=== PATIENT | male | born 1960 | race African-American/Black ===

== ENCOUNTER 2023-05-20 20:48 | Emergency (ER) | payer MEDICAID ==
[~2023-05-20] VITALS: Ht 167.6 cm; Wt 73.0 kg
[2023-05-20 21:01] VITALS: BP 116/77; O2SAT 99
[2023-05-20] MEDS ORDERED: ACETAMINOPHEN 325MG TABLET PO ONE (23:30)
[2023-05-21] MEDS ORDERED: METH-653 MT (01:45)
[2023-05-21 02:24] VITALS: PULSE 82; RESP 18
== END 2023-05-21 02:24 | disposition home or self-care (01) ==
LOC: ER 20:48
DX: M54.50 Low back pain, unspecified (principal); M25.561 Pain in right knee; M25.551 Pain in right hip; Z88.0 Allergy status to penicillin
CPT/HCPCS: 73502; 73562; 99284

== ENCOUNTER 2023-09-03 17:27 | Emergency (ER) | payer MEDICAID ==
[~2023-09-03] VITALS: Ht 167.6 cm; Wt 70.3 kg
[~2023-09-03 17:27] MED LIST: METH-653 MT
[2023-09-03 17:47] VITALS: O2SAT 99
[2023-09-03] MEDS ORDERED: ONDANSETRON 4MG ODT PO STA (18:21)
[2023-09-03 19:15] LABS: BASOPHILS % 0.2 % (0.0-2.0); EOSINOPHILS % 0.5 % (0.0-5.0); HEMOGLOBIN. 15.2 g/dL (14.0-18.0); LYMPHOCYTES % 13.3 % (20.0-50.0); MEAN CORPUSCULAR HEMOGLOBIN 31.1 pg (28.0-32.0); MEAN CORPUSCULAR HGB CONC 33.7 g/dL (31.0-37.0); MEAN CORPUSCULAR VOLUME 92.2 fL (80.0-94.0); MEAN PLATELET VOLUME 6.8 fl (7.4-10.4); MONOCYTES % 12.1 % (2.0-8.0); NEUTROPHILS % 73.9 % (40.0-76.0); PLATELET 319 x1000/uL (130-400); RED BLOOD CELL COUNT 4.88 mill/uL (4.7-6.1); RED CELL DISTRIBUTION WIDTH 13.2 % (11.6-14.6); WHITE BLOOD COUNT 14.2 x1000/uL (4.5-11.0)
[2023-09-03 19:24] LABS: PROTHROMBIN TIME 10.9 sec (9.6-11.0)
[2023-09-03 19:28] LABS: ALANINE AMINOTRANSFERASE 19 IU/L (10-49); ALBUMIN 3.9 g/dL (3.2-4.8); ASPARTATE AMINOTRANSFERASE 20 IU/L (<34); BILIRUBIN TOTAL 0.3 mg/dL (0.1-1.0); CALCIUM 9.2 mg/dL (8.7-10.4); CARBON DIOXIDE 28 mEq/L (21-32); CHLORIDE 105 mEq/L (98-107); CREATININE 1.1 mg/dL (0.6-1.3); GLUCOSE 113 mg/dL (70-105); POTASSIUM 3.7 mEq/L (3.5-5.1); PROTEIN TOTAL 7.7 g/dL (6.0-8.3); SODIUM 140 mEq/L (136-145); TROPONIN I HIGH SENSITIVITY 6 ng/L (3.0-53); UREA NITROGEN BLOOD 17 mg/dL (9-23)
[2023-09-03] MEDS ORDERED: P20 MT (20:59)
[2023-09-03 21:33] LABS: CLARITY URINE CLEAR (CLEAR); COLOR URINE YELLOW (YELLOW); GLUCOSE URINE NEGATIVE (NEGATIVE); KETONES URINE TRACE (NEGATIVE); LEUKOCYTE ESTERASE URINE NEGATIVE (NEGATIVE); NITRITE URINE NEGATIVE (NEGATIVE); OCCULT BLOOD URINE TRACE (NEGATIVE); PROTEIN URINE 1+ (NEGATIVE); UROBILINOGEN URINE 0.2 E.U./dL (0.2-1.0)
[2023-09-03 21:59] VITALS: BP 114/58; PULSE 93; RESP 16; TEMP 98.2
[2023-09-03] MEDS ORDERED: ONDANSETRON 4MG ODT PO NR (22:00)
[2023-09-03 22:03] LABS: BACTERIA URINE 1+; RBC URINE 0-2 /hpf (0-2); SQUAMOUS EPITHELIAL CELL URINE FEW /lpf (RARE/1+); WBC URINE 0-2 /hpf (0-2)
== END 2023-09-03 22:05 | disposition home or self-care (01) ==
LOC: ER 17:27
DX: R19.7 Diarrhea, unspecified (principal); Z88.0 Allergy status to penicillin
CPT/HCPCS: 99283; 80053; 81003; 83690; 85025; 85610; 84484; 36415; Q0162

== ENCOUNTER 2023-09-04 21:57 | Emergency (ER) | payer MEDICAID ==
[~2023-09-04] VITALS: Ht 167.6 cm; Wt 73.0 kg
[~2023-09-04 21:57] MED LIST changes: +P20 MT
[2023-09-04 22:17] VITALS: BP 111/67; PULSE 89; RESP 14; TEMP 99; O2SAT 99
[2023-09-05] MEDS ORDERED: P50 MT (09:07)
[2023-09-05] MEDS ORDERED: MESA1.2T2 MT (09:07)
== END 2023-09-05 03:42 | disposition left against medical advice (07) ==
LOC: ER 21:57
DX: R19.7 Diarrhea, unspecified (principal); Z53.21 Procedure and treatment not carried out due to patient leaving prior to being seen by health care provider
CPT/HCPCS: 99281

== ENCOUNTER 2023-09-05 04:52 | Emergency (ER) | payer MEDICAID ==
[~2023-09-05] VITALS: Ht 167.6 cm; Wt 70.0 kg
[2023-09-05 05:32] VITALS: BP 108/64; PULSE 53; RESP 12; TEMP 98.5; O2SAT 100
[2023-09-05 06:18] LABS: BASOPHILS % 0.1 % (0.0-2.0); HEMATOCRIT. 43.3 % (42.0-52.0); HEMOGLOBIN. 14.4 g/dL (14.0-18.0); LYMPHOCYTES % 14.8 % (20.0-50.0); MEAN CORPUSCULAR HEMOGLOBIN 30.8 pg (28.0-32.0); MEAN CORPUSCULAR HGB CONC 33.2 g/dL (31.0-37.0); MEAN CORPUSCULAR VOLUME 92.8 fL (80.0-94.0); MEAN PLATELET VOLUME 6.8 fl (7.4-10.4); MONOCYTES % 7.8 % (2.0-8.0); NEUTROPHILS % 77.3 % (40.0-76.0); PLATELET 350 x1000/uL (130-400); RED BLOOD CELL COUNT 4.67 mill/uL (4.7-6.1); RED CELL DISTRIBUTION WIDTH 13.2 % (11.6-14.6)
[2023-09-05 06:26] LABS: ALANINE AMINOTRANSFERASE 21 IU/L (10-49); ASPARTATE AMINOTRANSFERASE 20 IU/L (<34); BILIRUBIN TOTAL 0.4 mg/dL (0.1-1.0); CALCIUM 9.5 mg/dL (8.7-10.4); CARBON DIOXIDE 27 mEq/L (21-32); CHLORIDE 107 mEq/L (98-107); GLUCOSE 113 mg/dL (70-105); POTASSIUM 4.3 mEq/L (3.5-5.1); PROTEIN TOTAL 7.9 g/dL (6.0-8.3); SODIUM 141 mEq/L (136-145); UREA NITROGEN BLOOD 16 mg/dL (9-23)
[2023-09-05] MEDS ORDERED: MESA1.2T2 MT (09:07)
[2023-09-05] MEDS ORDERED: P50 MT (09:07)
== END 2023-09-05 09:30 | disposition home or self-care (01) ==
LOC: ER 05:33
DX: K50.10 Crohn's disease of large intestine without complications (principal); J45.909 Unspecified asthma, uncomplicated; Z88.0 Allergy status to penicillin
CPT/HCPCS: 36415; 80053; 85025; 99283